=== PATIENT | male | born 1990 | race American Indian/Alaskan Native ===

== ENCOUNTER 2020-09-17 13:23 | Outpatient (CLI) | payer BC, OTHER | END 2020-09-17 13:24 | disposition home or self-care (01) | LOC: LABHHL 13:23 | PROVIDERS: ATTEND Otolaryngology | DX: D14.0 Benign neoplasm of middle ear, nasal cavity and accessory sinuses (principal) | CPT/HCPCS: 88305 ==

== ENCOUNTER 2021-12-30 23:37 | Emergency (ER) | payer BC ==
[2021-12-31] MEDS ORDERED: THIAMINE 100 MG, FOLIC ACID 1 MG, MULTIPLE VITAMIN INJ, ADULT 10 ML in SODIUM CHLORIDE ... IV ONE (00:17)
--- NOTE | 2021-12-31 00:22 | Emergency Department Report ---
ED Alcohol HPI - General Chief Complaint: Alcohol Stated Complaint: ALTERED MENTAL - ETOH Time Seen by Provider: 12/31/21 00:10 Source: EMS Mode of arrival: Stretcher Limitations: Altered Mental Status - History of Present Illness Initial Comments: 31 yo Morbidly Obese M brought in with alcohol intoxication. According to sister her brother called her yesterday evening that he was going to club with a girl. Shortly after this she got a call that he has been drinking heavily. She went to see him at the club only to find him unresponsive on the floor drunk. No other modifying or associated factors reported. MD Complaint: alcohol intoxication - Related Data Previous Rx's Medication Instructions Recorded Last Taken Type Cyclobenzaprine HCl [Flexeril] 10 mg PO TID #30 tablet 09/28/13 Unknown Rx HYDROcodone/APAP 5-325 [[place] 1 each PO Q6HR PRN #20 tablet 09/28/13 Unknown Rx 5/325 mg] Ibuprofen [Motrin] 600 mg PO Q8H PRN #60 tablet 09/28/13 Unknown Rx Allergies Allergy/AdvReac Type Severity Reaction Status Date / Time Penicillins Allergy Swelling Verified 09/28/13 02:16 ED Review of Systems ROS: Stated complaint: ALTERED MENTAL - ETOH Other details as noted in HPI Comment: All other systems reviewed and negative Constitutional: other (intoxication ) ED Past Medical Hx - Past Medical History Previous Medical History?: Yes Hx Hypertension: Yes (no meds) - Surgical History Past Surgical History?: No - Social History Smoking Status: Unknown if ever smoked Substance Use Type: Alcohol - Medications Home Medications: Home Medications Medication Instructions Recorded Confirmed Last Taken Type Cyclobenzaprine HCl [Flexeril] 10 mg PO TID #30 tablet 09/28/13 Unknown Rx HYDROcodone/APAP 5-325 [[place] 1 each PO Q6HR PRN #20 tablet 09/28/13 Unknown Rx 5/325 mg] Ibuprofen [Motrin] 600 mg PO Q8H PRN #60 tablet 09/28/13 Unknown Rx ED Physical Exam - General Limitations: Altered Mental Status General appearance: appears intoxicated - Head Head exam: Present: atraumatic, normal inspection - Eye Eye exam: Present: normal appearance Pupils: Present: normal accommodation - ENT ENT exam: Present: normal exam, normal orophraynx, mucous membranes dry - Neck Neck exam: Present: normal inspection - Respiratory Respiratory exam: Present: normal lung sounds bilaterally. Absent: respiratory distress, accessory muscle use - Cardiovascular Cardiovascular Exam: Present: regular rate, normal rhythm, normal heart sounds - GI/Abdominal GI/Abdominal exam: Present: soft, normal bowel sounds. Absent: distended, tenderness - Extremities Exam Extremities exam: Present: normal inspection. Absent: pedal edema - Neurological Exam Neurological exam: Present: other (alcohol intoxication ) - Skin Skin exam: Present: dry ED Course Vital Signs 12/30/21 12/30/21 23:45 23:50 Temperature 98.2 F Pulse Rate 68 Respiratory 18 Rate Blood Pressure 140/70 O2 Sat by Pulse 97 100 Oximetry ED Medical Decision Making - Lab Data Result diagrams: 12/31/21 00:08 12/31/21 00:08 - Medical Decision Making alcohol intoxication -- will go ahead and order ivf ns 1L bolus and with Banana bag with multivitamins-- while waiting for ordered CBC, CMP, UA and UDS with EtOH level-- Will get CT head since this patient is drunk and intoxicated to be sure he did not fall with intracranial hemorrhage or skull fx -- pt woke up and became very agitated -- pt given 2 mg IV Versed + Benadryl and Haldol x 1-- with improvement in agitation Lab reviewed to be unremarkable except K+ 3.2 given potassium 20 mEq PO x 1 and with EtOH 0.25 consistent with the above presentation with intoxication-- Pt given IVF ns 1L bolus x1 with 1L bolus of banana bag x 1-- Pt will be ready to be discharged home when awake -- mother reassured Critical care attestation.: If time is entered above; I have spent that time in minutes in the direct care of this critically ill patient, excluding procedure time. ED Disposition Clinical Impression: Hypokalemia Alcohol intoxication Qualifiers: Complication of substance-induced condition: with unspecified complication Qualified Code(s): F10.929 - Alcohol use, unspecified with intoxication, unspecified Disposition: 01 HOME / SELF CARE / HOMELESS Is pt being admited?: No Does the pt Need Aspirin: No Condition: Stable Instructions: Binge-Drinking Information, Adult, Hypokalemia, Potassium Content of Foods Additional Instructions: Please follow-up the above printed instruction to help your symptoms Cut back on excess alcohol drink for your overall health Increase your daily fluid to help your hydration Call or return to emergency room if your symptoms worsen Referrals: PRIMARY CARE [Primary Care Provider] - 3-5 Days Time of Disposition: 06:26
[2021-12-31 00:40] LABS: Eosinophils # (Auto) 0.1 K/mm3 (0.0-0.4); Eosinophils % (Auto) 0.7 % (0.0-4.3); Hematocrit 45.8 % (35.5-45.6); Lymphocytes # (Auto) 1.3 K/mm3 (1.2-5.4); Lymphocytes % (Auto) 17.8 % (13.4-35.0); Mean Corpuscular HGB Conc 33 % (32-34); Mean Corpuscular Volume 91 fl (84-94); Monocytes # (Auto) 0.7 K/mm3 (0.0-0.8); Monocytes % (Auto) 10.3 % (0.0-7.3); Platelet Count 235 K/mm3 (140-440); Red Blood Count 5.05 M/mm3 (3.65-5.03)
[2021-12-31 00:51] LABS: Calcium 8.3 mg/dL (8.4-10.2)
[2021-12-31] MEDS ORDERED: LORazepam 2 MG/ML VIAL IV ONE (02:40)
[2021-12-31] MEDS ORDERED: diphenhydrAMINE 50 MG/ML VIAL IV ONE (02:45)
[2021-12-31] MEDS ORDERED: HALOPERIDOL LACTATE 5 MG/1 ML INJ IM ONE (02:46)
[2021-12-31 03:26] LABS: RBC,Urine < 1.0 /HPF (0.0-6.0)
[2021-12-31 03:27] LABS: Color,Urine Colorless (Yellow)
[2021-12-31 03:28] LABS: Bilirubin,Urine Negative (Negative); Blood,Urine Negative (Negative)
[2021-12-31 03:29] LABS: Protein,Urine <15 mg/dL mg/dL (Negative); Urobilinogen,Urine 0.2 mg/dL (<2.0)
[2021-12-31 03:33] LABS: Amphetamine Screen,Urine Negative; Benzodiazepines Screen,Urine Negative; Cannabinoid Screen,Urine Negative; Cocaine Screen,Urine Negative; Methadone Screen,Urine Negative; Opiate Screen,Urine Negative
[2021-12-31] MEDS ORDERED: POTASSIUM CHLORIDE ER 20 MEQ TAB PO ONE (06:26)
[2021-12-31 08:29] VITALS: BP 154/91
== END 2021-12-31 08:34 | disposition home or self-care (01) ==
LOC: ED 23:37
DX: E87.6 Hypokalemia (principal); F10.129 Alcohol abuse with intoxication, unspecified; I10 Essential (primary) hypertension; Z79.899 Other long term (current) drug therapy
CPT/HCPCS: 36415; 80053; 80307; 81001; 85025; 96365; 96366; 96375; 99284; J2060; J3411; J3490; J7030; 80320; G0480